=== PATIENT | female | born 1980 | race Caucasian/White ===

== ENCOUNTER 2017-10-09 18:25 | Inpatient (IN) | payer SELFPAY ==
--- NOTE | 2017-10-09 19:02 | EDM.PDOC ---
ED HPI GENERAL MEDICAL PROBLEM - General Chief Complaint: Abdominal Pain Stated Complaint: MEDICAL VIA AMBULANCE Time Seen by Provider: 10/09/17 18:35 Source of Information: Reports: Patient, Old Records, RN Notes Reviewed History Limitations: Reports: No Limitations - History of Present Illness INITIAL COMMENTS - FREE TEXT/NARRATIVE: 36-year-old female known history of gastric bypass from the [facility] area was transferred up here to the emergency department Dr. Marty new as well as Dr. Ford general surgery CT scan done at their facility questions the possibility of a Gastrograstic fistula Abdominal Pain Score (Numeric/FACES): 6 - Related Data Allergies Allergy/AdvReac Type Severity Reaction Status Date / Time No Known Allergies Allergy Verified 10/09/17 18:47 Past Medical History Neurological History: Reports: Migraines Psychiatric History: Reports: Depression - Past Surgical History GI Surgical History: Reports: Bariatric Procedure Social & Family History - Tobacco Use Smoking Status *Q: Current Every Day Smoker Years of Tobacco use: 24 Packs/Tins Daily: 0.5 - Caffeine Use Caffeine Use: Reports: Tea - Recreational Drug Use Recreational Drug Use: No ED ROS GENERAL - Review of Systems Review Of Systems: See Below Constitutional: Denies: Fever Respiratory: Reports: No Symptoms Cardiovascular: Reports: No Symptoms GI/Abdominal: Reports: Abdominal Pain, Nausea, Vomiting ED EXAM, GI/ABD - Physical Exam Exam: See Below Exam Limited By: No Limitations General Appearance: Alert, WD/WN, No Apparent Distress Respiratory/Chest: No Respiratory Distress, Lungs Clear, Normal Breath Sounds, No Accessory Muscle Use Cardiovascular: Regular Rate, Rhythm, No Murmur GI/Abdominal Exam: Soft, Non-Tender Course - Vital Signs Last Recorded V/S: Last Vital Signs Temp 98.4 F 10/09/17 18:48 Pulse 60 10/09/17 18:48 Resp 16 10/09/17 18:48 BP 143/69 H 10/09/17 18:48 Pulse Ox 97 10/09/17 18:48 Departure - Departure Time of Disposition: 19:06 Disposition: Admitted As Inpatient 64 Condition: Fair Clinical Impression: Gastric bypass status for obesity Abdominal pain Qualifiers: Abdominal location: epigastric Qualified Code(s): R10.13 - Epigastric pain - Discharge Information Referrals: PCP,None [Primary Care Provider] - - Assessment/Plan Plan: Assessment Acuity = acute Site and laterality = abdominal pain comp came patient with known history gastric bypass Etiology = question of gastro-gastric fistula Manifestations = nausea and vomiting Location of injury = Home Lab values = none Plan Called discussed case with Dr. Ford plan is for admission tonight and then surgical intervention in the morning This note was dictated using [employer]Ring voice recognition software please call with any questions on syntax or grammar.
[2017-10-09] MEDS ORDERED: Ondansetron 4 MG/2 ML SDV IV PRN (19:08)
[2017-10-09] MEDS: Lactated Ringers 1,000 ML IV SCH (19:52)
[2017-10-09] MEDS: Pantoprazole 40 MG Vial IVPUSH SCH (20:20)
[2017-10-09] MEDS: HYDROmorphone 1 MG/ML Syringe IVPUSH PRN (20:27)
[2017-10-09] MEDS: LORazepam 2 MG/ML SDV IVPUSH PRN (21:03)
[2017-10-09] MEDS: Piperacillin/Tazobactam 3.375 GM in Sodium Chloride 0.9% 50 ML IV SCH (21:09)
[2017-10-10] MEDS: HYDROmorphone 1 MG/ML Syringe IVPUSH PRN ×2 (01:46→05:36)
[2017-10-10] MEDS: Piperacillin/Tazobactam 3.375 GM in Sodium Chloride 0.9% 50 ML IV SCH ×2 (01:49→10:03)
[2017-10-10] MEDS: Lactated Ringers 1,000 ML IV SCH (05:10)
[2017-10-10] MEDS: LORazepam 2 MG/ML SDV IVPUSH PRN (05:46)
[2017-10-10] MEDS ORDERED: Meperidine PF 100 MG/ML Syringe IM ONE (06:51)
[2017-10-10] MEDS ORDERED: hydrOXYzine HCl 100 MG/2 ML SDV IM ONE (06:51)
[2017-10-10] MEDS ORDERED: Naloxone 0.4 MG/ML SDV IVPUSH PRN (06:54)
[2017-10-10] MEDS: HYDROmorphone/Normal Saline 15 MG/30 ML PCA IV PRN (07:26)
[2017-10-10] MEDS ORDERED: fentaNYL 250 MCG/5 ML SDV ONE ×2 (07:58→10:56)
[2017-10-10] MEDS ORDERED: Glycopyrrolate 0.2 MG/ML 5 ML MDV ONE (07:59)
[2017-10-10] MEDS ORDERED: Ondansetron 4 MG/2 ML SDV ONE (07:59)
[2017-10-10] MEDS ORDERED: Rocuronium 50 MG/5 ML Vial ONE (07:59)
[2017-10-10] MEDS ORDERED: Propofol 200 MG/20 ML SDV ONE (07:59)
[2017-10-10] MEDS ORDERED: Neostigmine Methylsulfate 1 MG/ML 5 ML Syringe ONE (07:59)
[2017-10-10] MEDS ORDERED: Succinylcholine 200 MG/10 ML MDV ONE (07:59)
[2017-10-10] MEDS ORDERED: Dexamethasone 4 MG/ML SDV ONE (07:59)
[2017-10-10] MEDS ORDERED: Dextrose 5%-Lactated Ringers 1,000 ML IV SCH (08:00)
[2017-10-10] MEDS: Pantoprazole 40 MG Vial IVPUSH SCH (08:42)
[2017-10-10] MEDS: Piperacillin/Tazobactam/Dext 3.375 GM in Premix Bag 1 BAG IV SCH ×3 (08:45→20:52)
[2017-10-10] MEDS ORDERED: Ropivacaine 45 ML, Dexamethasone 8 MG, EPINEPHrine 0.4 MG, Sodium Chloride 0.9% 32.6 ML NERVRT SCH ×4 (10:00)
[2017-10-10] MEDS ORDERED: Lidocaine 2% 100 MG/5 ML Syringe IVPUSH ONE (10:00)
[2017-10-10] MEDS ORDERED: Lidocaine 0.4%/D5W 2 GM/500 ML BAG IV SCH (10:00)
[2017-10-10] MEDS ORDERED: Ketamine 500 MG/5 ML MDV IV SCH (10:00)
[2017-10-10] MEDS ORDERED: Lactated Ringers 1,000 ML ONE (10:48)
[2017-10-10] MEDS ORDERED: Meropenem 500 MG SDV ONE ×2 (10:57→11:05)
[2017-10-10] MEDS ORDERED: fentaNYL 100 MCG/2 ML SDV ONE (11:58)
[2017-10-10] MEDS ORDERED: Naloxone 0.4 MG/ML SDV IV PRN (13:27)
[2017-10-10] MEDS ORDERED: Metoclopramide 10 MG/2 ML SDV IVPUSH PRN (14:00)
[2017-10-10] MEDS ORDERED: diphenhydrAMINE 50 MG/ML SDV IVPUSH PRN (14:00)
[2017-10-10] MEDS ORDERED: Scopolamine 1.5 MG Transdermal Patch TOP SCH (14:00)
[2017-10-10] MEDS ORDERED: Labetalol 20 MG/4 ML Syringe IVPUSH PRN (14:00)
[2017-10-10] MEDS: Acetaminophen Soln 650 MG/20.3 ML UD Cup PO SCH ×2 (14:32→20:51)
[2017-10-10] MEDS: Gabapentin 250 MG/5 ML Solution ML 470 ML Bottle PO SCH ×2 (14:32→20:51)
[2017-10-10] MEDS ORDERED: MVI, Adult with Vitamin K 10 ML, Thiamine 200 MG, Chromium/Copper/Mang/Selen/Zn 1 ML in... IV SCH ×4 (16:00)
[2017-10-10] MEDS: Heparin Sodium 5,000 Units/ML Vial SUBCUT SCH (20:52)
[2017-10-10] MEDS: Dextrose 5%-Lactated Ringers 1,000 ML IV SCH ×2 (20:53→21:43)
[2017-10-11] MEDS: Acetaminophen Soln 650 MG/20.3 ML UD Cup PO SCH ×4 (02:24→19:24)
[2017-10-11] MEDS: Piperacillin/Tazobactam/Dext 3.375 GM in Premix Bag 1 BAG IV SCH ×4 (02:24→19:24)
[2017-10-11] MEDS: hydrOXYzine HCl 100 MG/2 ML SDV IM PRN ×3 (02:31→22:11)
[2017-10-11] MEDS: Dextrose 5%-Lactated Ringers 1,000 ML IV SCH ×2 (03:55→10:50)
[2017-10-11] MEDS: Cyclobenzaprine 10 MG Tab PO PRN ×3 (08:24→22:11)
[2017-10-11] MEDS: Heparin Sodium 5,000 Units/ML Vial SUBCUT SCH ×2 (08:26→19:24)
[2017-10-11] MEDS: Pantoprazole 40 MG Vial IVPUSH SCH (08:26)
[2017-10-11] MEDS: Celecoxib 200 MG Cap PO SCH (08:26)
[2017-10-11] MEDS: Gabapentin 250 MG/5 ML Solution ML 470 ML Bottle PO SCH ×3 (08:26→22:10)
[2017-10-11] MEDS: SCOPOLAMINE PATCH CHECK TOP SCH (09:20)
[2017-10-11] MEDS: Sertraline 50 MG Tab PO SCH (09:20)
[2017-10-11] MEDS: Magnesium Sulfate/Water 2 GM in Premix Bag 1 BAG IV SCH ×3 (09:22→19:24)
[2017-10-11] MEDS: MVI, Adult with Vitamin K 10 ML, Thiamine 200 MG, Chromium/Copper/Mang/Selen/Zn 1 ML in... IV SCH ×4 (16:55)
[2017-10-11] MEDS: HYDROmorphone/Normal Saline 15 MG/30 ML PCA IV PRN (18:06)
[2017-10-12] MEDS ORDERED: Acetaminophen 1,000 MG in Premix Bag 1 BAG IV ONE (02:07)
[2017-10-12] MEDS: Acetaminophen Soln 650 MG/20.3 ML UD Cup PO SCH ×4 (02:15→19:09)
[2017-10-12] MEDS: Piperacillin/Tazobactam/Dext 3.375 GM in Premix Bag 1 BAG IV SCH ×4 (02:55→19:05)
[2017-10-12] MEDS: Magnesium Sulfate/Water 2 GM in Premix Bag 1 BAG IV SCH ×4 (02:56→19:57)
[2017-10-12] MEDS: Dextrose 5%-Lactated Ringers 1,000 ML IV SCH ×2 (05:04→11:00)
[2017-10-12] MEDS ORDERED: Meropenem 500 MG SDV ONE (07:08)
[2017-10-12] MEDS ORDERED: Lidocaine 1% with EPINEPHrine 1:100,000 50 ML MDV ONE (07:09)
[2017-10-12] MEDS ORDERED: Bupivacaine 0.5% 50 ML MDV ONE (07:09)
[2017-10-12] MEDS ORDERED: fentaNYL 100 MCG/2 ML SDV ONE (07:20)
[2017-10-12] MEDS ORDERED: Propofol 200 MG/20 ML SDV ONE ×2 (07:20→08:10)
[2017-10-12] MEDS ORDERED: Ropivacaine 45 ML, Dexamethasone 8 MG, EPINEPHrine 0.4 MG, Sodium Chloride 0.9% 32.6 ML NERVRT SCH ×4 (07:30)
[2017-10-12] MEDS ORDERED: Lidocaine 1% 2 ML ONE (07:35)
[2017-10-12] MEDS ORDERED: Cyanocobalamin (Vitamin B12) 1,000 MCG/ML SDV IM ONE (09:00)
[2017-10-12] MEDS: Celecoxib 200 MG Cap PO SCH (10:02)
[2017-10-12] MEDS: SCOPOLAMINE PATCH CHECK TOP SCH (10:02)
[2017-10-12] MEDS: Heparin Sodium 5,000 Units/ML Vial SUBCUT SCH ×2 (10:02→19:09)
[2017-10-12] MEDS: Pantoprazole 40 MG Vial IVPUSH SCH (10:03)
[2017-10-12] MEDS: Sertraline 50 MG Tab PO SCH (10:04)
[2017-10-12] MEDS: Bisacodyl 5 MG Tab PO SCH ×2 (10:04→20:18)
[2017-10-12] MEDS: Gabapentin 250 MG/5 ML Solution ML 470 ML Bottle PO SCH ×3 (10:24→20:18)
[2017-10-12] MEDS: MVI, Adult with Vitamin K 10 ML, Thiamine 200 MG, Chromium/Copper/Mang/Selen/Zn 1 ML in... IV SCH ×4 (16:23)
[2017-10-12] MEDS: HYDROmorphone/Normal Saline 15 MG/30 ML PCA IV PRN (22:09)
[2017-10-13] MEDS: Piperacillin/Tazobactam/Dext 3.375 GM in Premix Bag 1 BAG IV SCH ×4 (01:16→20:18)
[2017-10-13] MEDS: Magnesium Sulfate/Water 2 GM in Premix Bag 1 BAG IV SCH (02:24)
[2017-10-13] MEDS: Acetaminophen Soln 650 MG/20.3 ML UD Cup PO SCH ×4 (02:31→20:11)
[2017-10-13] MEDS: Dextrose 5%-Lactated Ringers 1,000 ML IV SCH (06:38)
--- NOTE | 2017-10-13 07:32 | PCM.PN ---
- General Info Date of Service: 10/13/17 Admission Dx/Problem (Free Text): Epigastric pain. Status post RNY gastric bypass. Subjective Update: Patient is POD #3. Her vitals were stable overnight with no acute events. She is up, ambulating and urinating. Patient is concerned about insurance and has received pamphlets on how to start the process of becoming insured. She states she stopped taking her medication for her ulcers due to losing her insurance. Functional Status: Reports: Pain Controlled, Tolerating Diet, Ambulating, Urinating - Review of Systems General: Reports: No Symptoms HEENT: Reports: No Symptoms Pulmonary: Reports: No Symptoms Cardiovascular: Reports: No Symptoms Gastrointestinal: Reports: No Symptoms Genitourinary: Reports: No Symptoms Musculoskeletal: Reports: No Symptoms Skin: Reports: No Symptoms Neurological: Reports: No Symptoms Psychiatric: Reports: No Symptoms Systems Review Comment:: Remainder of ROS is negative for any pertinent positives or negatives. - Patient Data Vitals - Most Recent: Last Vital Signs Temp 97.1 F 10/13/17 02:35 Pulse 57 L 10/13/17 02:35 Resp 18 10/13/17 02:35 BP 115/54 L 10/13/17 02:35 Pulse Ox 93 L 10/13/17 02:35 Weight - Most Recent: 199 lb 15.983 oz I&O - Last 24 Hours: Intake & Output 10/12/17 10/13/17 10/13/17 22:59 06:59 14:59 Intake Total 2230 1705 Output Total 1835 1023 Balance 395 682 Tino Results Last 24 Hours: Microbiology 10/10/17 11:10 Gram Stain - Final Abdomen - Abscess Wound Culture - Final NO GROWTH AFTER 3 DAYS Anaerobic Culture - Final NO GROWTH AFTER 3 DAYS 10/10/17 11:10 Gram Stain - Final Peritoneal Fluid Wound Culture - Final NO GROWTH AFTER 3 DAYS Anaerobic Culture - Final NO GROWTH AFTER 3 DAYS Med Orders - Current: Current Medications Acetaminophen (Tylenol) 650 mg PO Q6H [facility] Last Admin: 10/13/17 02:31 Dose: 650 mg Bisacodyl (Dulcolax) 10 mg PO BID [facility] Last Admin: 10/12/17 20:18 Dose: 10 mg Celecoxib (Celebrex) 200 mg PO DAILY@0800 [facility] Last Admin: 10/12/17 10:02 Dose: 200 mg Cyclobenzaprine HCl (Flexeril) 10 mg PO Q6H PRN PRN Reason: Muscle Spasm Last Admin: 10/11/17 22:11 Dose: 10 mg Diphenhydramine HCl (Benadryl) 25 - 50 mg IVPUSH Q4H PRN PRN Reason: ITCHING Gabapentin (Neurontin) 300 mg PO TID [facility] Last Admin: 10/12/17 20:18 Dose: 300 mg Heparin Sodium (Porcine) (Heparin Sodium) 5,000 units SUBCUT Q12H [facility] Last Admin: 10/12/17 19:09 Dose: 5,000 units Hydromorphone HCl (Dilaudid Rn Social [employer] 15 Mg In Ns 30 Ml) 0 mg IV ASDIRECTED PRN; Protocol PRN Reason: Pain Last Admin: 10/12/17 22:09 Dose: 15 mg Hydroxyzine HCl (Vistaril) 100 mg IM Q4H PRN PRN Reason: pain Last Admin: 10/11/17 22:11 Dose: 100 mg Piperacillin/Tazobactam/ (Dextrose 3.375 gm/ Premix) 50 mls @ 100 mls/hr IV Q6H [facility] Last Admin: 10/13/17 01:16 Dose: 100 mls/hr Multivitamins/Minerals 10 ml/Thiamine HCl 200 mg/ Chromium/Copper/Manganese/ Seleni/Zn 1 ml/ Dextrose/Lactated Ringer's 1,013 mls @ 100 mls/hr IV DAILY@ 1600 [facility] Last Admin: 10/12/17 16:23 Dose: 100 mls/hr Dextrose/Lactated Ringer's (Dextrose 5%-Lactated Ringers) 1,000 mls @ 100 mls/ hr IV ASDIRECTED [facility] Last Admin: 10/13/17 06:38 Dose: 100 mls/hr Labetalol HCl (Normodyne) 5 - 15 mg IVPUSH Q1H PRN PRN Reason: SBP over 160 OR DBP over 95 Metoclopramide HCl (Reglan) 10 mg IVPUSH Q6H PRN PRN Reason: NAUSEA NOT CONTROL BY ZOFRAN Naloxone HCl (Narcan) 0.1 mg IV ASDIRECTED PRN PRN Reason: decreased respiratory rate Ondansetron HCl (Zofran) 4 mg IV Q4H PRN PRN Reason: Nausea/Vomiting Last Admin: 10/09/17 20:22 Dose: 4 mg Pantoprazole Sodium (Protonix) 40 mg PO ACBREAKFAST [facility] Senna/Docusate Sodium (Senna Plus) 2 tab PO DAILY [facility] Last Admin: 10/12/17 10:03 Dose: 2 tab Sertraline HCl (Zoloft) 100 mg PO DAILY [facility] Last Admin: 10/12/17 10:04 Dose: 100 mg Discontinued Medications Bupivacaine HCl (Marcaine 0.5%) Confirm Administered Dose 50 ml .ROUTE .STK-MED ONE Stop: 10/12/17 07:10 Last Admin: 10/12/17 08:00 Dose: 20 ml Ropivacaine 45 ml/Dexamethasone 8 mg/Epinephrine HCl 0.4 mg/ Sodium Chloride 32.6 ml 0 ml NERVRT ASDIRECTED [facility] Last Admin: 10/10/17 11:29 Dose: 100 syringe Ropivacaine 45 ml/Dexamethasone 8 mg/Epinephrine HCl 0.4 mg/ Sodium Chloride 32.6 ml 0 ml NERVRT ASDIRECTED [facility] Last Admin: 10/12/17 08:10 Dose: 100 syringe Cyanocobalamin (Vitamin B12) 1,000 mcg IM ONETIME ONE Stop: 10/12/17 09:01 Last Admin: 10/12/17 10:04 Dose: 1,000 mcg Dexamethasone (Dexamethasone) Confirm Administered Dose 4 mg .ROUTE .STK-MED ONE Stop: 10/10/17 08:00 Fentanyl (Sublimaze) Confirm Administered Dose 250 mcg .ROUTE .STK-MED ONE Stop: 10/10/17 07:59 Fentanyl (Sublimaze) Confirm Administered Dose 250 mcg .ROUTE .STK-MED ONE Stop: 10/10/17 10:57 Fentanyl (Sublimaze) Confirm Administered Dose 100 mcg .ROUTE .STK-MED ONE Stop: 10/10/17 11:59 Fentanyl (Sublimaze) Confirm Administered Dose 100 mcg .ROUTE .STK-MED ONE Stop: 10/12/17 07:21 Glycopyrrolate (Robinul) Confirm Administered Dose 1 mg .ROUTE .STK-MED ONE Stop: 10/10/17 08:00 Hydromorphone HCl (Dilaudid) 1 mg IVPUSH Q1H PRN PRN Reason: Pain Last Admin: 10/10/17 05:36 Dose: 1 mg Hydroxyzine HCl (Vistaril) 100 mg IM STAT ONE Stop: 10/10/17 06:52 Last Admin: 10/10/17 07:25 Dose: 100 mg Hydroxyzine HCl (Vistaril) 75 - 100 mg IM Q4H PRN PRN Reason: pain Last Admin: 10/11/17 07:18 Dose: 100 mg Lactated Ringer's (Ringers, Lactated) 1,000 mls @ 125 mls/hr IV ASDIRECTED [facility] Last Admin: 10/10/17 05:10 Dose: 125 mls/hr Piperacillin Sod/Tazobactam (Sod 3.375 gm/ Sodium Chloride) 50 mls @ 100 mls/ hr IV Q6H [facility] Last Admin: 10/10/17 10:03 Dose: Not Given Dextrose/Lactated Ringer's (Dextrose 5%-Lactated Ringers) 1,000 mls @ 125 mls/ hr IV ASDIRECTED [facility] Lidocaine HCl/Dextrose (Lidocaine 2 Gm/D5w 500 Ml) 2 gm in 500 mls @ 22.5 mls/ hr IV .[id number] [facility] Stop: 10/11/17 08:13 Last Admin: 10/10/17 13:46 Dose: 1.5 mg/min, 22.5 mls/hr Ketamine HCl 100 mg/ Sodium (Chloride) 100 mls @ 17.79 mls/hr IV ASDIRECTED [facility] Lactated Ringer's (Ringers, Lactated) Confirm Administered Dose 1,000 mls @ as directed .ROUTE .STK-MED ONE Stop: 10/10/17 10:49 Dextrose/Lactated Ringer's (Dextrose 5%-Lactated Ringers) 1,000 mls @ 175 mls/ hr IV ASDIRECTED [facility] Last Admin: 10/11/17 03:55 Dose: 175 mls/hr Multivitamins/Minerals 10 ml/Thiamine HCl 200 mg/ Chromium/Copper/Manganese/ Seleni/Zn 1 ml/ Dextrose/Lactated Ringer's 1,013 mls @ 175 mls/hr IV DAILY@ 1600 [facility] Last Admin: 10/10/17 15:10 Dose: 175 mls/hr Magnesium Sulfate 2 gm/ Premix 50 mls @ 25 mls/hr IV Q6H [facility] Stop: 10/13/17 03:59 Last Admin: 10/13/17 02:24 Dose: 25 mls/hr Acetaminophen 1,000 mg/ Premix 100 mls @ 400 mls/hr IV NOW ONE Stop: 10/12/17 02:21 Last Admin: 10/12/17 02:54 Dose: 400 mls/hr Lidocaine HCl (Xylocaine-Mpf 1%) Confirm Administered Dose 2 mls @ as directed .ROUTE .STK-MED ONE Stop: 10/12/17 07:36 Ketamine HCl (Ketalar) 30 mg IV ASDIRECTED [facility] Lidocaine HCl (Xylocaine 2%) 100 mg IVPUSH ONETIME ONE Stop: 10/10/17 10:01 Last Admin: 10/10/17 13:44 Dose: Not Given Lidocaine/Epinephrine (Xylocaine 1% With Epinephrine 1:100,000) Confirm Administered Dose 50 ml .ROUTE .STK-MED ONE Stop: 10/12/17 07:10 Last Admin: 10/12/17 08:00 Dose: 20 ml Lorazepam (Ativan) 1 mg IVPUSH Q2H PRN PRN Reason: Anxiety Last Admin: 10/10/17 05:46 Dose: 1 mg Meperidine HCl (Demerol) 100 mg IM STAT ONE Stop: 10/10/17 06:52 Last Admin: 10/10/17 07:25 Dose: 100 mg Meropenem (Merrem) Confirm Administered Dose 1,000 mg .ROUTE .STK-MED ONE Stop: 10/10/17 10:58 Last Admin: 10/10/17 11:10 Dose: 1,000 mg Meropenem (Merrem) Confirm Administered Dose 500 mg .ROUTE .STK-MED ONE Stop: 10/10/17 11:06 Last Admin: 10/10/17 10:55 Dose: 500 mg Meropenem (Merrem) Confirm Administered Dose 500 mg .ROUTE .STK-MED ONE Stop: 10/12/17 07:09 Last Admin: 10/12/17 07:55 Dose: 500 mg Miscellaneous Information (Remove Patch) 1 ea TRDERM ONETIME ONE Stop: 10/12/17 10:01 Last Admin: 10/12/17 10:17 Dose: Not Given Neostigmine Methylsulfate (Neostigmine) Confirm Administered Dose 5 mg .ROUTE .STK-MED ONE Stop: 10/10/17 08:00 Scopolamine Patch (Check) 1 each TOP DAILY TOI Stop: 10/12/17 14:01 Last Admin: 10/12/17 10:02 Dose: Not Given Ondansetron HCl (Zofran) Confirm Administered Dose 4 mg .ROUTE .STK-MED ONE Stop: 10/10/17 08:00 Pantoprazole Sodium (Protonix Iv) 40 mg IVPUSH Q12H [facility] Last Admin: 10/10/17 08:42 Dose: 40 mg Pantoprazole Sodium (Protonix Iv) 40 mg IVPUSH Q24H [facility] Last Admin: 10/12/17 10:03 Dose: 40 mg Propofol (Diprivan 20 Ml) Confirm Administered Dose 200 mg .ROUTE .STK-MED ONE Stop: 10/10/17 08:00 Propofol (Diprivan 20 Ml) Confirm Administered Dose 200 mg .ROUTE .STK-MED ONE Stop: 10/12/17 07:21 Propofol (Diprivan 20 Ml) Confirm Administered Dose 200 mg .ROUTE .STK-MED ONE Stop: 10/12/17 08:11 Rocuronium Printer (Zemuron) Confirm Administered Dose 50 mg .ROUTE .STK-MED ONE Stop: 10/10/17 08:00 Scopolamine (Transderm-Scop) 1.5 mg TOP Q72H [facility] Stop: 10/12/17 10:00 Last Admin: 10/10/17 14:31 Dose: 1.5 mg Succinylcholine Chloride (Quelicin) Confirm Administered Dose 200 mg .ROUTE .STK -MED ONE Stop: 10/10/17 08:00 - Exam General: Alert, Oriented, Cooperative, No Acute Distress HEENT: Pupils Equal, Mucous Membr. Moist/[place] Neck: Supple Lungs: Clear to Auscultation, Normal Respiratory Effort Cardiovascular: Regular Rate, Regular Rhythm GI/Abdominal Exam: Normal Bowel Sounds Extremities: Normal Range of Motion Skin: Warm, Dry, Intact Wound/Incisions: Healing Well, Dressing Dry and Intact, Drainage (Purulent. ) Neurological: No New Focal Deficit Psy/Mental Status: Alert, Normal Affect, Normal Mood - Problem List Review Problem List Initiated/Reviewed/Updated: Yes - Assessment Assessment:: Perforation of duodenal ulcer due to recurrent peptic ulcer disease. Periduodenal abscess. 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 - Plan Plan:: 1. Amyklase body fluid 2. Hydromorphon 2-4mg po q4h prn for pian 3. Stop Hydromorphone/Normal Saline IV prn for pain 4. Stop communication order (RC) Stat 5. Stop notify provider (RC) prn 6. Stop [employer] 7. Stop pulse oximetry 8 Stop Medication discontinue instructions stat 9. Reevaluate prn or in am
--- NOTE | 2017-10-13 08:41 | PN ---
DATE OF SERVICE: 10/12/2017 The patient has been afebrile with stable vital signs. Oral intake was fairly good. delayed primary closure of abdominal incision. We will resume diet and otherwise maximize activity and work with pulmonary toilet. Probably, work on getting the bowels going somewhat today and switch over to oral pain medicine tomorrow. Luis Ford MD Job #: [id number]
--- NOTE | 2017-10-13 08:41 | OR ---
DATE OF PROCEDURE: 10/12/2017 PREOPERATIVE DIAGNOSIS: Open abdominal incision. POSTOPERATIVE DIAGNOSIS: Open abdominal incision. PROCEDURE: Delayed primary closure of open abdominal incision. ANESTHESIA: IV sedation plus local. INDICATIONS FOR PROCEDURE: The patient is 48 hours status post treatment of a perforated duodenal ulcer. At the time of incision, she was felt to be high risk for wound infection. So, it was packed the wound for a planned delayed primary closure. Potential risks including bleeding and infection were reviewed, and the patient wishes to proceed. DETAILS OF PROCEDURE: The patient was taken to the operating room, placed in a supine position. IV sedation was administered, after which the abdominal dressing was taken down. The wound was inspected and found to be clean. The area was then prepped and draped, anesthetized with 1% lidocaine, mixed with Marcaine, and irrigated with meropenem-containing saline solution. A 10-Albanian round Smith-Tejeda drain was then placed around the bed of the incision through a small stab wound inferior to the incision and secured with a 3-0 Vicryl stitch. The incision was then closed with 2 layers of 3-0 and 4-0 Vicryl stitch deep and pauline for the skin. Dressing was applied. Following this, bilateral subcostal transverse abdominis plane blocks were placed using continuous ultrasound guidance. The patient was taken to the recovery room in satisfactory condition. Luis Ford MD Job #: [id number]
[2017-10-13] MEDS: Heparin Sodium 5,000 Units/ML Vial SUBCUT SCH ×2 (09:12→20:11)
[2017-10-13] MEDS: Bisacodyl 5 MG Tab PO SCH ×2 (09:13→20:12)
[2017-10-13] MEDS: Pantoprazole 40 MG Tab.CR PO SCH (09:14)
[2017-10-13] MEDS: Celecoxib 200 MG Cap PO SCH (09:14)
[2017-10-13] MEDS: HYDROmorphone 2 MG Tab PO PRN ×4 (09:23→22:34)
[2017-10-13] MEDS: Sertraline 50 MG Tab PO SCH (09:28)
--- NOTE | 2017-10-13 10:23 | PN ---
DATE OF SERVICE: 10/11/2017 HISTORY: The patient has been afebrile with stable vital signs. Urine output has been satisfactory overnight, and she has had some clear liquids and has been doing okay with that. The cultures thus far are not showing any growth. The plan will be to go to a step-3 diet today. Her magnesium is low, that will be supplemented, we will restart her Zoloft, and we will plan on delayed primary closure of abdominal incision tomorrow morning. Otherwise, work with pulmonary toilet and maximizing activity. Luis Ford MD Job #: [id number]
[2017-10-13] MEDS: Gabapentin 250 MG/5 ML Solution ML 470 ML Bottle PO SCH ×3 (11:37→20:11)
[2017-10-13] MEDS: MVI, Adult with Vitamin K 10 ML, Thiamine 200 MG, Chromium/Copper/Mang/Selen/Zn 1 ML in... IV SCH ×4 (18:33)
[2017-10-14] MEDS: hydrOXYzine HCl 100 MG/2 ML SDV IM PRN (00:44)
[2017-10-14] MEDS: Piperacillin/Tazobactam/Dext 3.375 GM in Premix Bag 1 BAG IV SCH ×2 (03:03→08:08)
[2017-10-14] MEDS: Acetaminophen Soln 650 MG/20.3 ML UD Cup PO SCH ×2 (03:03→08:04)
[2017-10-14] MEDS: Dextrose 5%-Lactated Ringers 1,000 ML IV SCH (05:22)
[2017-10-14] MEDS: Celecoxib 200 MG Cap PO SCH (08:03)
[2017-10-14] MEDS: Pantoprazole 40 MG Tab.CR PO SCH (08:03)
[2017-10-14] MEDS: Heparin Sodium 5,000 Units/ML Vial SUBCUT SCH (08:04)
[2017-10-14] MEDS: Bisacodyl 5 MG Tab PO SCH (08:04)
[2017-10-14] MEDS: Sertraline 50 MG Tab PO SCH (08:04)
[2017-10-14] MEDS: Gabapentin 250 MG/5 ML Solution ML 470 ML Bottle PO SCH (08:06)
--- NOTE | 2017-10-14 10:08 | DISCH ---
ADMISSION DIAGNOSES: Abdominal pain, status post Ruy-en-Y gastric bypass surgery, unspecified surgical malabsorption, and B12 deficiency. 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 Date of surgery, 10/10/2017. HISTORY: Alycia Paniagua is a 36-year-old female who presented to [facility] by ambulance from [place], [place], with abdominal pain. After preoperative evaluation and discussion of possible risks and possible complications, she wished to proceed with surgical procedure. HOSPITAL COURSE: She had her surgery on 10/10/2017. She had no operative complications. On postop day #1, her vital signs were stable. Her magnesium was replaced. She was started on her home medication. She went from clear liquid diet to step-3 gastric bypass diet. On 10/12/2017, she had delayed primary closure with no complications and continued to progress diet. She was up ambulating and was started on oral pain medication. On 10/14/2017, she was able to be discharged to home with no complications. PHYSICAL EXAMINATION: GENERAL: Logan Paniagua is a 36-year-old female. VITAL SIGNS: Height is 5 feet 6 inches. Weight is 199 pounds. TPR is 98, 54, 18, and blood pressure 108/59. HEENT: Negative. NECK: Supple. HEART: Regular rate and rhythm. LUNGS: Clear. ABDOMEN: [place] intact. Her midline THALIA drain fell out last night, has a 4x4 over the THALIA drain site, and she has 4x4s over her other 2 THALIA drains. Abdominal binder has been on. EXTREMITIES: Without peripheral edema. DISPOSITION: Discharged to home. CONDITION: Stable and improving. FOLLOWUP APPOINTMENT: With Kary Bryson PA-C, on 10/21/2017 at 10 a.m. DISCHARGE MEDICATIONS: New Prescriptions: 1. Dilaudid 2 mg 1 to 2 every 4 hours p.r.n. pain, #40. 2. Tylenol 650 mg q.6 hours p.r.n. pain. 3. Senokot-S 2 tablets at bedtime, #100. She is to resume her home medications of; 1. Tylenol PM one tablet at bedtime. 2. Calcium citrate two tablets daily. 3. Vitamin D3 one tablet daily. 4. B12 one tablet daily. 5. Ferrous fumarate one daily. 6. Ferrous sulfate one daily. 7. Protonix one tablet twice daily. 8. Multivitamin two tablets oral daily. 9. Penicillin VK one tablet three times a day. 10.Zoloft one tablet daily. 11.Vitamin B complex one daily. 12.Metronidazole 0.75%, one applicator twice daily. When she follows up for her postop appointment, she is encouraged to bring in her medications. The dosages will be corrected in her clinic chart. DISCHARGE DIET: Step-4 gastric bypass diet. Drink 8 to 10 glasses of water a day. ACTIVITY: No lifting greater than 10 pounds for 6 weeks. Driving, do not drive while on pain medication. Shower/bathing, may shower. DISCHARGE INSTRUCTIONS: Notify provider if any fever, increased pain, swelling, redness, drainage, nausea, or vomiting. Keep site clean and dry. Wear abdominal binder for 2 weeks and then as tolerated. Use incentive spirometer 10 times every hour while awake.
--- NOTE | 2017-10-19 11:44 | OR ---
DATE OF PROCEDURE: 10/10/2017 PREOPERATIVE DIAGNOSIS: Perforated peptic ulcer. POSTOPERATIVE DIAGNOSES: 1. Perforated duodenal ulcer with history of recurrent peptic ulcer disease. 2. Periduodenal abscess. 3. 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 OPERATIVE PROCEDURES: Exploratory laparotomy with; 1. Total gastrectomy including proximal duodenum with perforated duodenal ulcer (39372). 2. Drainage of periduodenal abscess (95505). 3. Debridement of pancreas and peripancreatic tissue adherent to gastric antrum (79803). ANESTHESIA: General. SOCIAL MEDIA MARKETING SPECIALIST: DOV Magana. INDICATION FOR PROCEDURE: This is a 36-year-old status post previous Ruy-en-Y gastric bypass. She does have a known history of previous peptic ulcer disease. She presented to the hospital in [place] with a picture of acute abdomen. CT scan was suggestive of a perforation of the proximal duodenum or distal antrum, i.e., perforated peptic ulcer. After calling around, the [facility] contacted us, and we agreed to accept transfer for definitive treatment. The plan is to proceed with exploratory laparotomy and most likely total gastrectomy, removing the remaining stomach as well as proximal duodenum. The patient has preexisting Ruy-en-Y gastric bypass and that anastomosis will continue as the main conduit for her GI tract continuity. The potential risks of the procedure including bleeding, infection, leaks from various GI tract closures, problems with bowel obstruction over time, as well as the possibility of cardiopulmonary, septic, or hemorrhagic complications leading to were discussed, and the patient wishes to proceed. DETAILS OF PROCEDURE: The patient was taken to the operating room and after general endotracheal anesthesia was induced, a Garcia catheter was inserted, and the abdomen prepped and draped. Bilateral subcostal transversus abdominis plane blocks were been placed using continuous ultrasound and standard solutions injected bilaterally. An upper midline from the xiphoid to the umbilicus was made and carried down through the full thickness of the abdominal wall. The patient had some thin bilious material running along the right colic gutter and from there into the pelvis. She had a more well-defined abscess anterior to the distal stomach and duodenum, consistent with what was seen on CT scan being somewhat of air and fluid-containing collection at that level. Cultures of this periduodenal abscess were then obtained as it was drained. Initially, a stitch was placed in the duodenal ulcer, which was roughly 1 cm distal to the pylorus and located in the usual anterior location, and the decision was made to proceed with removal of the bypassed stomach as well as the duodenum to a point distal to the perforation where there would be a sound staple line. Initially, the greater curvature attachments were taken down with the mesenteric and vascular pauline. As one passed up into the area of the medial gastric fundus, this was densely adherent to the area that would be essentially the esophagojejunostomy as the patient had a very small pouch at/or near the esophagogastric junction. This area had a small opening after completion of that resection, and the Ruy-en-Y anatomy was then reconstructed with 2 layers of 3-0 Vicryl stitch, the first being full-thickness and the second being seromuscular, and that appeared to be satisfactorily closed off at the opening. The remainder of attachments to the lesser curvature were then taken down with mesenteric pauline as well. Finally, dissection began along the proximal duodenum both inferiorly and superiorly with these areas being divided with Harmonic scalpel and pauline. Once the duodenum was encircled at a point where there was relatively a soft tissue amenable to satisfactory staple line, the duodenum was divided with a curved black load. This staple line appeared to be very secure. At this point, no further problems were noted. The abdomen was irrigated with an antibiotic- containing saline solution. Initially, some fibrin sealant was placed over the area of the newly constructed esophagojejunostomy and some omentum tacked up into that area and then, similarly, some fibrin sealant placed over the area of the pancreatic debridement. Of note, during the course of the distal stomach and duodenal dissection, there was somewhat necrotic peripancreatic and pancreatic tissue, which were debrided and adherent to the specimen and sent along with the specimen. Fibrin sealant was placed over the area of the pancreatic debridement as well as duodenal stump and that area also then reinforced in that location with some 3-0 Vicryl stitch. Two Smith-Tejeda drains were then placed, one in the left subcostal area and positioned across the area of the esophagojejunostomy and the second from the right side placed across the area of the duodenal stump closure and site of pancreatic debridement. The midline fascia was then closed with a #2 Vicryl stitch. The subcutaneous tissue and skin were left open as this appeared to be a case with the high likelihood of wound infection if a primary closure was undertaken. We will plan on delayed primary closure in 48 hours. The patient remained hemodynamically stable and was taken to the recovery room in a satisfactory condition. Luis Ford MD /[id number]
== END 2017-10-14 09:39 | disposition home or self-care (01) | DRG 326 ==
LOC: JP.ED 18:25 → JP.2SS 19:08
PROVIDERS: ADMIT Surgery; ATTEND Surgery
PROC: 0DT60ZZ Resection of Stomach, Open Approach (ICD-10-PCS; principal; 2017-10-10)
PROC: 0D9 Gastrointestinal System, Drainage (ICD-10-PCS; 2017-10-10)
PROC: 0DN60ZZ Release Stomach, Open Approach (ICD-10-PCS; 2017-10-10)
PROC: 0FNG0ZZ Release Pancreas, Open Approach (ICD-10-PCS; 2017-10-10)
PROC: 0DB90ZX Excision of Duodenum, Open Approach, Diagnostic (ICD-10-PCS; 2017-10-10)
PROC: 0D150ZA Bypass Esophagus to Jejunum, Open Approach (ICD-10-PCS; 2017-10-10)
PROC: 3E0T3BZ Introduction of Anesthetic Agent into Peripheral Nerves and Plexi, Percutaneous Approach (ICD-10-PCS; 2017-10-10)
PROC: 0WQF0ZZ Repair Abdominal Wall, Open Approach (ICD-10-PCS; 2017-10-12)
PROC: 3E0T3BZ Introduction of Anesthetic Agent into Peripheral Nerves and Plexi, Percutaneous Approach (ICD-10-PCS; 2017-10-12)
DX: K26.5 Chronic or unspecified duodenal ulcer with perforation (principal); K65.1 Peritoneal abscess; K91.2 Postsurgical malabsorption, not elsewhere classified; E83.42 Hypomagnesemia; Z98.84 Bariatric surgery status; F17.210 Nicotine dependence, cigarettes, uncomplicated; F32.9 Major depressive disorder, single episode, unspecified; Z98.0 Intestinal bypass and anastomosis status; K66.0 Peritoneal adhesions (postprocedural) (postinfection); Z87.11 Personal history of peptic ulcer disease; T50.996A Underdosing of other drugs, medicaments and biological substances, initial encounter; Z91.120 Patient's intentional underdosing of medication regimen due to financial hardship; E53.8 Deficiency of other specified B group vitamins; Z48.1 Encounter for planned postprocedural wound closure
CPT/HCPCS: 36415; 80053; 82150; 82607; 82728; 83735; 84100; 85025; 87070; 87075; 87205; 88307; 88342; 94762; 99284; 99285; A9270-GY; C9113; J0131; J0171; J0330; J1100; J1170; J1644; J2001; J2060; J2175; J2185; J2405; J2543; J2704; J2710; J2795; J3010; J3410; J3411; J3420; J3475; J7030; J7042; J7050; J7120

== ENCOUNTER 2018-08-17 07:45 | Day surgery (SDC) | payer MEDICAID ==
[2018-08-17] MEDS ORDERED: Lactated Ringers 1,000 ML IV SCH (08:45)
[2018-08-17] MEDS ORDERED: Cyanocobalamin (Vitamin B12) 1,000 MCG/ML SDV IM ONE (09:00)
[2018-08-17] MEDS ORDERED: Glycopyrrolate 0.2 MG/ML 2 ML SDV IVPUSH ONE (09:15)
[2018-08-17] MEDS ORDERED: Propofol 200 MG/20 ML SDV ONE (09:44)
[2018-08-17] MEDS ORDERED: Midazolam 1 MG/ML 2 ML SDV ONE (09:44)
[2018-08-17] MEDS ORDERED: fentaNYL 100 MCG/2 ML SDV ONE (09:44)
[2018-08-17] MEDS ORDERED: MVI, Adult with Vitamin K 10 ML, Thiamine 200 MG, Chromium/Copper/Mang/Selen/Zn 1 ML in... IV ONE ×4 (10:00)
[2018-08-17] MEDS ORDERED: Lidocaine 2% 60 ML, Alum Hydrox/Mag Hydrox/Simeth 360 ML PO PRN ×2 (11:37)
--- NOTE | 2018-08-21 15:37 | OR ---
DATE OF PROCEDURE: 08/17/2018 PREOPERATIVE DIAGNOSIS: Epigastric pain and dysphagia, status post Ruy-en-Y gastric bypass. POSTOPERATIVE DIAGNOSIS: Grossly normal examination, status post Ruy-en-Y gastric bypass. OPERATIVE PROCEDURE: Upper gastrointestinal endoscopy. ANESTHESIA: IV sedation. INDICATION FOR PROCEDURE: This is a 37-year-old, status post Ruy-en-Y gastric bypass in 2011. She subsequently underwent a distal total gastrectomy on 10/10/2017 related to a perforated duodenal ulcer. Recently, she has had problems with epigastric pain and sense of burning especially with eating. She was seen by Kary Bryson PA-C, on 08/09/2018 and had her omeprazole dose increased from 20 mg a day to 20 mg b.i.d. and then Carafate 1 g q.i.d. Since that time, she is somewhat improved, but not entirely. The plan is to proceed with an upper GI endoscopy, biopsies, and dilation as indicated. Potential risks including bleeding and perforation were discussed, and the patient wishes to proceed. DETAILS OF PROCEDURE: The patient was taken to the operating room and then placed in a left lateral decubitus position. IV sedation was administered, after which the upper GI endoscope was passed orally through the length of the esophagus into the gastric pouch and from there through the gastrojejunostomy roughly 20 cm into the Ruy limb. Overall, at this point, the exam appeared to be entirely normal with no areas of significant inflammation or stricturing through the entire area of the examination. Probably, the recent medical management is improving things to the point that today's findings appeared to be essentially normal. The scope was withdrawn, the above findings reconfirmed, and the procedure was then concluded. We will add to patient's medical management at this point 2 ounces of Xylocaine mixed with 12 ounces of Maalox mix, to be taken with 1 to 2 tablespoons before meals p.r.n., and then should be following up with Kary Bryson PA-C, in [facility] in 3 to 4 weeks. The patient was noted to have low ferritin level on the recent exam, and she will receive IV iron infusion today with that to be repeated in about a week. Luis Ford MD /[id number]
== END 2018-08-17 12:56 | disposition home or self-care (01) ==
LOC: JP.SDS 07:45
PROVIDERS: ATTEND Surgery
DX: R10.13 Epigastric pain (principal); R13.10 Dysphagia, unspecified; F41.9 Anxiety disorder, unspecified; F32.9 Major depressive disorder, single episode, unspecified; K90.9 Intestinal malabsorption, unspecified; Z98.84 Bariatric surgery status; Z90.49 Acquired absence of other specified parts of digestive tract; Z87.19 Personal history of other diseases of the digestive system; Z79.899 Other long term (current) drug therapy
CPT/HCPCS: 43235; A9270; J2250; J2704; J3010; J3411; J3420; J3490; J7030; J7120; Q0138

== ENCOUNTER 2019-02-26 09:59 | Day surgery (SDC) | payer OTHER, MEDICAID ==
[2019-02-26] MEDS ORDERED: Cyanocobalamin (Vitamin B12) 1,000 MCG/ML SDV IM ONE (10:30)
[2019-02-26] MEDS ORDERED: Glycopyrrolate 0.2 MG/ML 2 ML SDV IVPUSH ONE (10:30)
[2019-02-26] MEDS ORDERED: Lactated Ringers 1,000 ML IV ONE (10:30)
[2019-02-26] MEDS ORDERED: MVI, Adult with Vitamin K 10 ML, Thiamine 200 MG, Chromium/Copper/Mang/Selen/Zn 1 ML in... IV ONE ×4 (11:30)
[2019-02-26] MEDS ORDERED: fentaNYL 100 MCG/2 ML SDV ONE (12:21)
[2019-02-26] MEDS ORDERED: Midazolam 1 MG/ML 2 ML SDV ONE (12:22)
[2019-02-26] MEDS ORDERED: Propofol 200 MG/20 ML SDV ONE (12:22)
--- NOTE | 2019-03-09 15:01 | OR ---
DATE OF PROCEDURE: 02/26/2019 SURGEON: Luis Ford MD PREOPERATIVE DIAGNOSIS: Mid epigastric pain radiating to the back, status post Ruy-en-Y gastric bypass. POSTOPERATIVE DIAGNOSIS: Normal upper gastrointestinal endoscopic exam, status post Ruy-en- Y gastric bypass. OPERATIVE PROCEDURE: Upper GI endoscopy. ANESTHESIA: IV sedation. INDICATION FOR PROCEDURE: This is a 38-year-old status post Ruy-en-Y gastric bypass presenting with postprandial epigastric pain which radiates to the back. She does appear to have at this point admitted to binge eating disorder and at some point in the future will be getting some treatment for that. She is presently on omeprazole and Carafate, but without significant relief. Plan is to proceed with upper GI endoscopy with biopsies and/or dilation as indicated. Potential risks including bleeding and perforation were discussed, and the patient wishes to proceed. DETAILS OF PROCEDURE: The patient was taken to the operating room and placed in a left lateral decubitus position. IV sedation was administered, after which the upper GI endoscope was passed orally through the length of the esophagus and into the gastric pouch, from there through the gastrojejunostomy roughly 20 cm into the Ruy limb. Overall, the findings were entirely normal. There were no areas of significant inflammation, stricturing, or other problems noted. Scope was then withdrawn, the above findings reconfirmed, and the procedure was then concluded. the patient's eating behavior has probably contributed to most of her symptoms, and this will need to be addressed as time goes forward. Luis Ford MD Job #: [id number]
== END 2019-02-26 14:25 | disposition home or self-care (01) ==
LOC: JP.SDS 09:59
PROVIDERS: ATTEND Surgery
DX: R10.13 Epigastric pain (principal); Z98.84 Bariatric surgery status; Z88.8 Allergy status to other drugs, medicaments and biological substances; Z79.899 Other long term (current) drug therapy
CPT/HCPCS: 43235; 81025; J2250; J2704; J3010; J3411; J3420; J7120

== ENCOUNTER 2020-01-08 10:40 | Day surgery (SDC) | payer OTHER, MEDICAID ==
[~2020-01-08 10:40] MED LIST: Midazolam 1 MG/ML 2 ML SDV ONE; Propofol 200 MG/20 ML SDV ONE; fentaNYL 100 MCG/2 ML SDV ONE
[2020-01-08] MEDS ORDERED: Cyanocobalamin (Vitamin B12) 1,000 MCG/ML SDV IM ONE (11:00)
[2020-01-08] MEDS ORDERED: Lactated Ringers 1,000 ML IV SCH ×2 (12:00→14:30)
[2020-01-08] MEDS ORDERED: Glycopyrrolate 0.2 MG/ML 2 ML SDV IVPUSH ONE (12:30)
[2020-01-08] MEDS ORDERED: MVI, Adult with Vitamin K 10 ML, Thiamine 200 MG, Chromium/Copper/Mang/Selen/Zn 1 ML in... IV ONE ×4 (13:00)
[2020-01-08] MEDS ORDERED: diphenhydrAMINE 50 MG/ML SDV IVPUSH ONE (14:27)
--- NOTE | 2020-01-14 12:43 | OR ---
DATE OF PROCEDURE: 01/08/2020 SURGEON: Luis Ford MD PREOPERATIVE DIAGNOSIS: Low substernal and epigastric discomfort. POSTOPERATIVE DIAGNOSES: 1. Low substernal and epigastric discomfort. 2. Very mild stricture at the gastrojejunostomy without significant mucosal inflammation or ulceration. OPERATIVE PROCEDURE: Upper gastrointestinal endoscopy with dilation of the gastrojejunostomy. ANESTHESIA: IV sedation. INDICATION FOR PROCEDURE: This is a 39-year-old female presenting with some epigastric lower substernal pain. She is status post Ruy-en-Y gastric bypass. She has had an ulcer in the past in the area of the gastrojejunostomy, and she states that this feels similar to that. The patient has been on Nexium 20 mg daily since October. Plan is to proceed with upper GI endoscopy with biopsies and/or dilation as indicated. Potential risks of the procedure including bleeding and perforation were discussed, and the patient wishes to proceed. DETAILS OF PROCEDURE: The patient was taken to the operating room and placed in a left lateral decubitus position. IV sedation was administered after which the upper GI endoscope was passed orally through the length of the esophagus, into the gastric pouch, and through the gastrojejunostomy roughly 20 cm into the Ruy limb. Overall, there was no gross inflammation or ulceration at any point in any of the mucosal surfaces visualized. There was a very mild stricture at the gastrojejunostomy. Bard gastrointestinal catheter was then centered across that and inflated to 54-Turkmen size. This resulted in little, if any, change in diameter as it was already fairly wide, and at that point, the scope was withdrawn and the procedure then concluded. The patient will continue her present home medications. She has taken Levsin in the past, and we will give her a new prescription for that at 0.125 mg sublingually q.6 hours p.r.n. esophageal spasm, and she will be set up for followup with Kary Bryson via virtual visit in 1 month. Luis Ford MD /[id number]
== END 2020-01-08 15:11 | disposition home or self-care (01) ==
LOC: JP.SDS 10:40
PROVIDERS: ATTEND Surgery
DX: R10.13 Epigastric pain (principal); R07.89 Other chest pain; K94.29 Other complications of gastrostomy; Z98.84 Bariatric surgery status; Z87.11 Personal history of peptic ulcer disease
CPT/HCPCS: 43245; 81025; J2250; J2704; J3010; J3411; J3420; J3490; J7120